=== PATIENT | female | born 1950 | race Caucasian/White ===

== ENCOUNTER → 2016-09-05 | Outpatient (CLI) | payer OTHER ==
[~2016-09-05] MED LIST: CALC500C70 PO; CHOL100010 PO; GABA-113 PO
--- NOTE | 2016-09-05 15:06 | DIAGNOSTIC IMAGING REPORT ---
MR ANGIOGRAPHY OF THE [place] NO CONTRAST CLINICAL HISTORY: I67.1 Anterior communicating artery [id number] COMPARISON STUDY: 06/18/2014 A 3-D [id number] MR angiographic sequence of the [place] was performed. Both the source and projection images were reviewed. There is no evidence of major intracranial branch occlusion. 2 tiny anterior to indicate artery aneurysms are suspected, each of which measures approximately 2 mm. There are no additional lesions suspicious for aneurysm. IMPRESSION: 2. 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 Electronically signed by: Celestino Ventura M.D. 09/05/2016 3:05 PM Dictated Date/Time: 09/05/2016 3:00 PM
== END | disposition home or self-care (01) ==
LOC: C.MRIBC 14:19
PROVIDERS: ATTEND Physician Assistant Medical
DX: I67.1 Cerebral aneurysm, nonruptured (principal)

== ENCOUNTER → 2016-09-09 | Outpatient (CLI) | payer OTHER ==
[2016-09-09 10:55] LABS: BASO % 0.5 %; BASO ABS # 0.03 K/uL (0-0.2); COMPLETE YES; EOS % 1.1 %; LYMPH % 33.3 %; MEAN CELL VOLUME 90.9 fL (80-100); MEAN CORPUSCULAR HEMOGLOBIN 30.3 pg (25-34); MEAN CORPUSCULAR HGB CONC 33.3 g/dl (32-36); MEAN PLATELET VOLUME 10.4 fL (7.4-10.4); MONO % 6.5 %; NEUT % 58.6 %; PLATELET COUNT 274 K/uL (130-400); RED BLOOD COUNT 4.62 M/uL (4.2-5.4)
[2016-09-09 11:05] LABS: ALT/SGPT 34 U/L (12-78); BLOOD UREA NITROGEN 8 mg/dl (7-18); CARBON DIOXIDE 26 mmol/L (21-32); CHLORIDE 109 mmol/L (98-107); CHOLESTEROL 231 mg/dl (0-200); CREATININE 0.71 mg/dl (0.60-1.20); GLUCOSE 93 mg/dl (70-99); POTASSIUM 3.9 mmol/L (3.5-5.1); SODIUM 143 mmol/L (136-145); TRIGLYCERIDES 155 mg/dl (0-150); VERY LOW DENSITY LIPOPROT CALC 31 mg/dl
[2016-09-09 11:08] LABS: ALB/GLOB RATIO 1.1 (0.9-2); ALKALINE PHOSPHATASE 73 U/L (45-117); AST/SGOT 26 U/L (15-37); HDL CHOLESTEROL 46 mg/dl; LDL CHOLESTEROL CALCULATED 154 mg/dl
[2016-09-09 11:11] LABS: CALCIUM 9.2 mg/dl (8.5-10.1)
== END | disposition home or self-care (01) ==
LOC: C.LABBC 08:51
PROVIDERS: ATTEND Physician Assistant Medical
DX: Z00.00 Encounter for general adult medical examination without abnormal findings (principal); G50.0 Trigeminal neuralgia; J45.909 Unspecified asthma, uncomplicated; M81.0 Age-related osteoporosis without current pathological fracture; E78.5 Hyperlipidemia, unspecified; E55.9 Vitamin D deficiency, unspecified

== ENCOUNTER → 2016-09-16 | Outpatient (CLI) | payer OTHER ==
--- NOTE | 2016-09-16 13:27 | MAMMOGRAPHY REPORT ---
BILATERAL DIGITAL SCREENING MAMMOGRAM WITH CAD: 09/16/2016 CLINICAL HISTORY: Routine screening. Patient has no complaints. TECHNIQUE: Current study was also evaluated with a Computer Aided Detection (CAD) system. Bilateral CC and MLO views were obtained. COMPARISON: Comparison is made to exams dated: 05/04/2010 mammogram - [facility], 03/2009, 03/23/2007, 02/22/2014 mammogram, and 01/25/2013 mammogram - [facility]. BREAST COMPOSITION: There are scattered areas of fibroglandular density in both breasts. FINDINGS: No suspicious masses, calcifications, or areas of architectural distortion are noted in ei ther breast. There has been no significant interval change compared to prior exams. Scattered bilate ral benign-appearing calcifications are again noted. IMPRESSION: ACR BI-RADS CATEGORY 2: BENIGN There is no mammographic evidence of malignancy. A 1 year screening mammogram is recommended. The pa tient will receive written notification of the results. Approximately 10% of breast cancers are not detected with mammography. A negative mammographic report should not delay biopsy if a clinically suggestive mass is present. Marjorie Jason M.D. /:09/16/2016 11:26:02 Fruit Peeler: Patience MEJIA(Elisha)(Megan)([place]), [facility] letter sent: Normal 1/2 BI-RADS Code: ACR BI-RADS Category 2: Benign
== END | disposition home or self-care (01) ==
LOC: C.MAMM 08:56
PROVIDERS: ATTEND Family Medicine
DX: Z12.31 Encounter for screening mammogram for malignant neoplasm of breast (principal)

== ENCOUNTER → 2016-11-01 | Outpatient (CLI) | payer OTHER | END | disposition home or self-care (01) | LOC: C.PAPS 09:04 | PROVIDERS: ATTEND Physician Assistant Medical | DX: Z12.4 Encounter for screening for malignant neoplasm of cervix (principal) ==

== ENCOUNTER 2017-08-13 19:25 | Emergency (ER) | payer OTHER ==
[~2017-08-13] VITALS: Ht 168.9 cm; Wt 81.3 kg
[2017-08-13 19:35] VITALS: TEMP 36.6; Ht 168.9 cm; Wt 81.3 kg
--- NOTE | 2017-08-13 20:02 | EMERGENCY ROOM VISIT NOTE ---
ED Visit Note First contact with patient: 19:40 I have seen and examined this patient with Bernice Schulte and generally agree with the treatment plan as discussed. Problem List Medical Problems: (1) Asthma Status: Chronic (2) Bronchitis Status: Chronic (3) Constipation Status: Resolved (4) Heart disease Status: Chronic (5) Kidney disease Status: Chronic (6) Rectal bleed Status: Resolved (7) Rectal bleed Status: Resolved Current/Historical Medications Scheduled Calcium/Vitamin D (Os-Carlso 500 Plus D), 1 TAB PO DAILY Cholecalciferol (Vitamin D), 2,000 INTER.UNIT PO DAILY Gabapentin (Neurontin), 300 MG PO AMPM Allergies Coded Allergies: No Known Allergies (Unverified , 09/18/13) Vital Signs Date Time Temp Pulse Resp B/P (MAP) Pulse Ox O2 Delivery O2 Flow Rate FiO2 08/13/17 19:35 36.6 75 18 157/82 98 Room Air Departure Information Referrals Boris Goetz M.D. (PCP) Patient Instructions My [facility]
[2017-08-13] MEDS ORDERED: ACETAMINOPHEN 500 MG TAB PO STA (20:08)
--- NOTE | 2017-08-13 21:29 | DIAGNOSTIC IMAGING REPORT ---
LEFT ELBOW 3 VIEWS HISTORY: left lateral elbow pain COMPARISON: None. FINDINGS: There is no fracture or dislocation. Soft tissues are unremarkable. No joint effusion. No radiopaque foreign bodies. IMPRESSION: No fracture or dislocation within the left elbow. Electronically signed by: Jonathon Wall M.D. 08/13/2017 9:27 PM Dictated Date/Time: 08/13/2017 9:26 PM
--- NOTE | 2017-08-13 21:40 | EMERGENCY ROOM VISIT NOTE ---
ED Visit Note First contact with patient: 19:40 CHIEF COMPLAINT: Left elbow pain HISTORY OF PRESENT ILLNESS: This 67-year-old female patient presents to the emergency department, ambulatory, complaining of pain in the left elbow which began spontaneously while driving her car. The patient states she is concerned she has a fracture, as she has severe osteoporosis and has gotten fracture spontaneously in the past. The patient denies any obvious injury, and states the pain just developed while driving. The patient rates their pain as sharp and 8/10. The patient has taken nothing for relief of the pain. The patient has not had previous fractures to this elbow. The patient does not have any numbness or tingling. The patient denies any other injuries. REVIEW OF SYSTEMS: A 6 system review of systems was completed with positives and pertinent negatives listed in the HPI. ALLERGIES: None MEDICATIONS: Gabapentin PMH: None SOCIAL HISTORY: The patient lives locally with family. She denies drug, alcohol , tobacco use. PHYSICAL EXAM: Vital Signs: Reviewed Nurse's notes, vital signs stable. GENERAL : This is a 67-year-old white female, in no acute distress, well-developed, well -nourished. SKIN: The skin was without rashes, erythema, edema, warmth, or bruising. Capillary reflex less than 3 seconds. MUSCULOSKELETAL: The patient is holding their elbow in a flexed and internally rotated position. There is tenderness over the lateral aspect of the left elbow. There is tenderness with any attempts to move the left elbow. There is no tenderness of the shoulder, wrist, or hand. The patient is able to give a thumbs up, make an OK sign, and a #3 with their fingers. Radial pulse 2+. NEURO: Patient was alert and oriented to person place and time. Normal sensation to light and sharp touch. RADIOLOGY: LEFT ELBOW 3 VIEWS HISTORY: left lateral elbow pain COMPARISON: None. FINDINGS: There is no fracture or dislocation. Soft tissues are unremarkable. No joint effusion. No radiopaque foreign bodies. IMPRESSION: No fracture or dislocation within the left elbow. Electronically signed by: Jonathon Wall M.D. 08/13/2017 9:27 PM Dictated Date/Time: 08/13/2017 9:26 PM EMERGENCY DEPARTMENT COURSE: I examined the patient. The patient was given 1 g p.o. Tylenol for her pain. She was seen and evaluated by Dr. Herbert. An x- ray of the left elbow was reviewed myself and read by radiology and shows no acute fracture. The patient was placed in an arm sling under my direction and the position was satisfactory. Neurovascular status was rechecked and intact. Discharge instructions reviewed. The patient was discharged home in stable condition. I attest that I have personally reviewed the patient's current medication list. Patient was found to have normal blood pressure on screening and does not require follow-up. Etiologies such as soft tissue injury, fracture, dislocation, neurovascular compromise, compartment syndrome, as well as others were entertained. DIAGNOSIS: Left elbow pain The chart was completed utilizing [employer] Speech voice recognition software. Grammatical errors, random word insertions, pronoun errors, and incomplete sentences are an occasional consequence of this system due to software limitations, ambient noise, and hardware issues. Any formal questions or concerns about the content, text, or information contained within the body of this dictation should be directly addressed to the provider for clarification. Problem List Medical Problems: (1) Asthma Status: Chronic (2) Bronchitis Status: Chronic (3) Constipation Status: Resolved (4) Heart disease Status: Chronic (5) Kidney disease Status: Chronic (6) Rectal bleed Status: Resolved (7) Rectal bleed Status: Resolved Current/Historical Medications Scheduled Calcium/Vitamin D (Os-Carlos 500 Plus D), 1 TAB PO DAILY Cholecalciferol (Vitamin D), 2,000 INTER.UNIT PO DAILY Gabapentin (Neurontin), 300 MG PO AMPM Allergies Coded Allergies: No Known Allergies (Unverified , 09/18/13) Vital Signs Date Time Temp Pulse Resp B/P (MAP) Pulse Ox O2 Delivery O2 Flow Rate FiO2 08/13/17 22:11 80 18 145/75 98 08/13/17 19:35 36.6 75 18 157/82 98 Room Air Medications Administered Medications (Trade) Dose Ordered Sig/Juhi Route Start Time Stop Time Status Last Admin Dose Admin Acetaminophen (Tylenol Tab) 1,000 mg NOW STAT PO 08/13/17 20:08 08/13/17 20:09 DC 08/13/17 20:19 1,000 MG Departure Information Impression Primary Impression: Left elbow pain Dispostion Home / Self-Care Condition GOOD Referrals Boris Goetz M.D. (PCP) [facility] Patient Instructions ED Sprain Elbow, My [facility] Additional Instructions You were seen in the ED today for elbow pain. As discussed, there is no fracture noted on xray. Ibuprofen(Motrin, Advil) may be used for fever or pain. Use 600mg every six hours as needed. Take with food. Avoid using more than 2400mg in a 24 hour period. Do not use 2400mg per day for more than three consecutive days without physician direction. Prolonged inappropriate use can lead to stomach upset or ulcers. (AND/OR) Acetaminophen(Tylenol) may be used for fever or pain. Use 1000mg every six hours as needed. Avoid using more than 3000mg in a 24 hour period. Ice compresses for 20 minutes at a time four times daily for 2-3 days. Use the sling as instructed. Remove your arm from the sling 4-6 times a day and move all the joints around to keep them loose. Rest and elevate your injury. Return to the ER immediately for any numbness, tingling, severe pain, extreme swelling in the extremity or as needed. Call [facility], [phone], if no improvement in 2-3 days to arrange follow up for your injury. Follow-up with your primary care physician in 2 to 3 days for a recheck of your current condition.
[2017-08-13 22:11] VITALS: BP 145/75; PULSE 80; O2SAT 98
== END 2017-08-13 22:13 | disposition home or self-care (01) ==
LOC: C.EDB 19:25 → C.EDD 22:13
DX: M25.522 Pain in left elbow (principal); M81.0 Age-related osteoporosis without current pathological fracture; J45.909 Unspecified asthma, uncomplicated

== ENCOUNTER → 2017-08-24 | Outpatient (CLI) | payer OTHER | END | disposition home or self-care (01) | LOC: C.MAMM 08:17 | PROVIDERS: ATTEND Internal Medicine | DX: M81.0 Age-related osteoporosis without current pathological fracture (principal); M84.40XA Pathological fracture, unspecified site, initial encounter for fracture; M85.851 Other specified disorders of bone density and structure, right thigh; M85.852 Other specified disorders of bone density and structure, left thigh ==

== ENCOUNTER 2021-04-21 20:54 | Inpatient (IN) ==
--- NOTE | 2021-04-21 21:38 | Emergency Department Note ---
Impression & Plan 2019 novel coronavirus-infected pneumonia (NCIP), Hypoxia ED Provider Note NAME: FELIPA VENTURA AGE: 70 SEX: F : 1950 ARRIVES VIA: Walk-In INFORMANT: Patient ED PROVIDER(S): Yonatan Cole DO CHIEF COMPLAINT: Cough and congestion HPI: Patient is a 70-year-old female who presents to the ER for symptoms that started on the april. She admits to cough and congestion. She denies any recorded fevers. She has felt diffusely achy. She does admit to mild shortness of breath. She has pain with coughing. No belly pain, nausea, vomiting, or diarrhea. No dysuria, urgency, or frequency. She has not been tested for COVID. She tried to get into see her PCP but was referred in to the ER. Does not smoke. ROS: See above HPI for pertinent positives & negatives. A total of 10 systems reviewed and were otherwise negative. PAST MEDICAL HISTORY:See Below PAST SURGICAL HISTORY:See Below FAMILY HISTORY:See Below SOCIAL HISTORY:See Below HOME MEDICATIONS:See Below ALLERGIES:See Below VITALS:See Below PHYSICAL EXAMINATION: GENERAL: Sitting up in bed, alert, disheveled, slightly ill-appearing with a persistent cough EYE EXAM: normal conjunctiva. PERRL and EOM's grossly intact. OROPHARYNX: no exudate, no erythema, lips, buccal mucosa, and tongue normal and mucous membranes are moist NECK: supple, no nuchal rigidity, no adenopathy, non-tender LUNGS: Clear to auscultation. Normal chest wall mechanics HEART: no murmurs, S1 normal and S2 normal ABDOMEN: abdomen soft, non-tender, normo-active bowel sounds, no masses, no rebound or guarding. UPPER EXTREMITIES: upper extremities are grossly normal. LOWER EXTREMITIES: No pitting edema. NEURO EXAM: Normal sensorium, cranial nerves II-XII grossly intact, normal speech, no gross weakness of arms, no gross weakness of legs. MEDICAL DECISION MAKING: Patient is a 70-year-old female who presents ER for upper respiratory symptoms. IV was established blood work is obtained. She is found to be hypoxic at 88 to 89% on room air. She is placed on 2 L nasal cannula. Labs showed no significant leukocytosis or anemia. BMP low with LFTs bilirubin was remarkable for a slightly elevated glucose of 103. Troponin was negative. Lipase unremarkable. COVID-positive. EKG shows new T wave inversions. Chest x-ray with infiltrates bilaterally worse in the left lower. Patient was given Decadron updated at bedside discussed with hospitalist admitted for further wo rk-up. Triage Nursing notes reviewed. Limited review of prior medical records performed Vital Signs: reviewed and remarkable for HTN Differential diagnosis: Differential diagnoses includes but is not limited to pneumonia, bronchitis, COPD/Asthma exacerbation, pneumothorax, pulmonary embolism, congestive heart failure, acute coronary syndrome ER treatment provided: See below Diagnostics interpreted by me: ECG: Sinus rhythm rate of 79 T wave inversion in the inferior leads T wave inversions V3 and V4 QTC 428 Right bundle branch block present T wave inversion is new in leads III and aVF Cardiac Monitoring: An order was placed for continuous cardiac monitoring. The monitor shows a rate of 92 with sinus rhythm. Laboratory studies: As stated above and show below. Imaging studies: Chest x-ray shows bilateral infiltrates Consultation(s): Discussed with Izaiah Saldaña for further evaluation Procedures: none Critical Care: None Past Med/Surg History Medical History Anterior communicating artery aneurysm Asthma Bronchitis Bronchitis Dyslipidemia Kidney disease Osteoporosis Radius and ulna distal fracture Rectal bleed Trigeminal neuralgia Vitamin D deficiency Surgical History H/O right wrist surgery History of tonsillectomy and adenoidectomy Family History Grandmother Myocardial infarction Grandfather Myocardial infarction Mother Myocardial infarction Brother Prostate cancer Denies family history of Colon cancer Ovarian cancer Breast cancer Social History Smoking Status: Never smoker Hx Alcohol Use: No Hx Substance Use: No Preferred Language: Yoruba Visual Impairment: No Limitations Hearing Ability: Normal marital status: Current Living Situation: Family current occupational status: retired Feels Safe at Home: Yes Childhood Exposure to Second-Hand Smoke: No Physical Activity Frequency: Daily Seatbelt Use: always Sunscreen Use: No Allergies Allergies Allergy/AdvReac Type Severity Reaction Status Date / Time No Known Drug Allergies Allergy Unknown Verified 04/21/21 21:44 Home Meds Home Medications Medication Instructions Recorded Confirmed calcium carbonate 600 mg calcium 600 mg PO DAILY #90 tab 11/07/18 04/21/21 (1,500 mg) tablet cholecalciferol (vitamin D3) 50 2,000 units PO DAILY cap 11/07/18 04/21/21 mcg (2,000 unit) capsule zinc 50 mg tablet 50 mg PO DAILY 11/25/19 04/21/21 ascorbic acid (vitamin C) 500 mg 500 mg PO BID 02/22/21 04/21/21 tablet oxcarbazepine 300 mg tablet 300 mg PO BID tab 03/03/21 04/21/21 Results & Data (ED) Vital Signs Vital Signs - 24 hr 04/21/21 20:58 04/21/21 22:00 04/21/21 22:46 Temperature 37.4 C Temperature Source Temporal Artery Scan Pulse Rate 95 H 77 Pulse Rate [Finger] Respiratory Rate 18 22 Respiratory Effort / Characteristics Non-Labored Spontaneous Respiratory Depth Normal Respiratory Pattern Regular Blood Pressure 155/86 H 145/89 H Blood Pressure [Right Arm] Blood Pressure Mean 109 107 Blood Pressure Mean [Right Arm] Blood Pressure Position Sitting Pulse Oximetry 91 89 L 88 L Oxygen Delivery Method Room Air Room Air Room Air Oxygen Flow Rate 0 Sepsis Recent Fever Within 48 Hours No Sepsis New/Unexplained Change in Mental Status No Sepsis Action Taken by Nursing No Action Required Oxygen Flow Rate - Titration 2 Pulse Oximetry Post Tiitration 94 04/21/21 22:54 04/21/21 22:55 04/21/21 23:00 Temperature Temperature Source Pulse Rate 78 82 Pulse Rate [Finger] 79 Respiratory Rate 22 20 22 Respiratory Effort / Characteristics Respiratory Depth Respiratory Pattern Blood Pressure 144/87 H 156/80 H Blood Pressure [Right Arm] 144/87 H Blood Pressure Mean 106 105 Blood Pressure Mean [Right Arm] 106 Blood Pressure Position Pulse Oximetry 94 95 95 Oxygen Delivery Method Nasal Cannula Oxygen Flow Rate 2 Sepsis Recent Fever Within 48 Hours Sepsis New/Unexplained Change in Mental Status Sepsis Action Taken by Nursing Oxygen Flow Rate - Titration Pulse Oximetry Post Tiitration Laboratory Data Result diagrams: 04/21/21 21:50 04/21/21 21:50 Lab Results 04/21/21 04/21/21 04/21/21 Range/Units 21:23 21:50 21:50 WBC 5.82 (4.8-10.8) K/uL RBC 4.50 (4.2-5.4) M/uL Hgb 13.4 (12.0-16.0) g/dL Hct 40.3 (37-47) % MCV 89.6 (80-100) fL MCH 29.8 (25-34) pg MCHC 33.3 (32-36) g/dL RDW Std Deviation 41.3 (36.4-46.3) fL RDW Coeff of Marilou 12.6 (11.5-14.5) % Plt Count 227 (130-400) K/uL MPV 10.0 (7.4-10.4) fL Neutrophils % (Manual) 62.5 % Lymphocytes % (Manual) 18.3 % Monocytes % (Manual) 0.9 % Neutrophils # (Manual) 3.64 (1.4-6.5) K/uL Total Absolute Neuts 3.64 (1.4-6.5) K/uL Lymphocytes # (Manual) 1.07 L (1.2-3.4) K/uL Total Abs Lymphocytes 2.13 (1.2-3.4) K/uL Monocytes # (Manual) 0.05 L (0.11-0.59) K/uL Large Granular Lymphs 18.3 % # Lrg Granular Lymphs 1.07 K/uL RBC Morphology Unremarkable Sodium 136 (136-145) mmol/L Potassium 3.8 (3.5-5.1) mmol/L Chloride 103 (98-107) mmol/L Carbon Dioxide 26 (21-32) mmol/L Anion Gap 7 (3-11) BUN 13 (6-23) mg/dl Creatinine 0.66 (0.6-1.2) mg/dl Est Cr Clr Drug Dosing 73.2 ml/min Est GFR ( Amer) 103.0 ml/min Est GFR (Non-Af Amer) 88.9 ml/min BUN/Creatinine Ratio 19.7 (10-20) Glucose 103 H (70-99(Fasting)) mg/dl Calcium 8.6 (8.5-10.1) mg/dl Total Bilirubin 0.5 (0.2-1.0) mg/dl AST 38 (13-39) U/L ALT 24 (7-52) U/L Alkaline Phosphatase 57 (34-104) U/L Troponin I < 0.03 (0-0.04) ng/ml Total Protein 6.5 (6.0-8.3) gm/dl Albumin 3.5 (3.4-5.0) gm/dl Globulin 3.0 (2.5-4.0) gm/dl Albumin/Globulin Ratio 1.2 (0.9-2) Lipase 73 (11-82) U/L SARS-CoV-2 (PCR) POSITIVE A* (Negative) Influenza Type A (PCR) Negative (Neg) Influenza Type B (PCR) Negative (Neg) RSV (RT-PCR) Negative (Neg) Imaging Data Radiologist's Impression: Chest X-Ray 04/21/21 21:13 XR chest 1V portable CLINICAL HISTORY: Chest Pain. Cough for 10 days. Nonsmoker. COMPARISON STUDY: 02/22/2021 TECHNIQUE: 1 view of the chest FINDINGS: Single frontal view of the chest demonstrates the cardiomediastinal silhouette to be within normal limits. Patchy interstitial and alveolar opacities are present bilaterally. The findings are most characteristic of a viral type pneumonitis. Covid 19 pneumonia should be excluded. There is no evidence for pleural effusion. There is no evidence for vascular congestion. There is no acute osseous pathology. IMPRESSION: Patchy interstitial and alveolar opacities bilaterally characteristic of a viral type pneumonitis and probable early Covid 19 pneumonia. ACT 112: Negative or not required by law. Electronically signed by: Min Wade M.D. 04/21/2021 9:42 PM Discharge Plan Visit Data Chief Complaint: Cough Stated Complaint: COUGHING, SOB, CHEST PAIN ED Provider: Yonatan Cole Discharge Problem: 2019 novel coronavirus-infected pneumonia (NCIP), Hypoxia Forms Stand Alone Forms: My [facility] Prescriptions Prescriptions: No Action oxcarbazepine 300 mg tablet 300 mg PO BID RF: 0 zinc 50 mg tablet 50 mg PO DAILY RF: 0 calcium carbonate 600 mg calcium (1,500 mg) tablet 600 mg PO DAILY Qty: 90 RF: 0 cholecalciferol (vitamin D3) 2,000 unit capsule 2,000 units PO DAILY RF: 0 ascorbic acid (vitamin C) 500 mg Tablet 500 mg PO BID RF: 0 Referrals Referrals: Apolinar Juárez MD [Primary Care Provider] -
--- NOTE | 2021-04-21 21:43 | XRay Report ---
XR chest 1V portable CLINICAL HISTORY: Chest Pain. Cough for 10 days. Nonsmoker. COMPARISON STUDY: 02/22/2021 TECHNIQUE: 1 view of the chest FINDINGS: Single frontal view of the chest demonstrates the cardiomediastinal silhouette to be within normal li mits. Patchy interstitial and alveolar opacities are present bilaterally. The findings are most kathia cteristic of a viral type pneumonitis. Covid 19 pneumonia should be excluded. There is no evidence fo r pleural effusion. There is no evidence for vascular congestion. There is no acute osseous pathology . IMPRESSION: Patchy interstitial and alveolar opacities bilaterally characteristic of a viral type pne umonitis and probable early Covid 19 pneumonia. ACT 112: Negative or not required by law. Electronically signed by: Min Wade M.D. 04/21/2021 9:42 PM
[2021-04-21 22:01] LABS: Hematocrit (blood only) 40.3 % (37-47); Hemoglobin 13.4 g/dL (12.0-16.0); Mean Corpuscular Hemoglobin 29.8 pg (25-34); Mean Corpuscular Hgb Conc 33.3 g/dL (32-36); Mean Corpuscular Volume 89.6 fL (80-100); Platelet Count 227 K/uL (130-400); RDW Coefficient of Variation 12.6 % (11.5-14.5); RDW Standard Deviation 41.3 fL (36.4-46.3); White Blood Count 5.82 K/uL (4.8-10.8)
[2021-04-21 22:10] LABS: Influenza A virus by PCR Negative (Neg); Influenza B virus by PCR Negative (Neg); RSV by PCR Negative (Neg); SARS CoV2 RNA(COVID-19) InHosp POSITIVE (Negative)
[2021-04-21 22:25] LABS: Troponin I < 0.03 ng/ml (0-0.04)
[2021-04-21 22:26] LABS: Alanine Aminotransferase 24 U/L (7-52); Albumin Globulin Ratio 1.2 (0.9-2); Albumin Level 3.5 gm/dl (3.4-5.0); Alkaline Phosphatase 57 U/L (34-104); Anion Gap 7 (3-11); Aspartate Aminotransferase 38 U/L (13-39); BUN Creatinine Ratio 19.7 (10-20); Bilirubin,Total 0.5 mg/dl (0.2-1.0); Blood Urea Nitrogen 13 mg/dl (6-23); Calcium 8.6 mg/dl (8.5-10.1); Carbon Dioxide 26 mmol/L (21-32); Chloride 103 mmol/L (98-107); Creatinine Clr Calc Pharmacy 73.2 ml/min; Est GFR (Non-African American) 88.9 ml/min; Glucose 103 mg/dl (70-99(Fasting)); Lipase 73 U/L (11-82); Potassium 3.8 mmol/L (3.5-5.1); Sodium 136 mmol/L (136-145); Total Protein 6.5 gm/dl (6.0-8.3)
[2021-04-21] MEDS ORDERED: dexAMETHasone 6 MG in SYRINGE 0 ML IV ONE (22:37)
[2021-04-21 22:43] LABS: ALC (manual) 2.13 K/uL (1.2-3.4); ANC (manual) 3.64 K/uL (1.4-6.5); Large Granular Lymph # (manua 1.07 K/uL; Large Granular Lymph % (manual) 18.3 %; Lymphocytes # (manual) 1.07 K/uL (1.2-3.4); Lymphocytes % (manual) 18.3 %; Monocytes # (manual) 0.05 K/uL (0.11-0.59); Monocytes % (manual) 0.9 %; Neutrophils # (manual) 3.64 K/uL (1.4-6.5); Neutrophils % (manual) 62.5 %; RBC Morphology Unremarkable
[2021-04-21] MEDS ORDERED: HYDROcodone/HOMATROPINE SYRUP 5MG/1.5MG 5ML UDP PO STA (23:08)
[2021-04-21] MEDS ORDERED: dexAMETHasone 4 MG in SYRINGE 0 ML IV ONE (23:09)
[2021-04-21] MEDS ORDERED: DEXAMETHASONE SOD INJ 4 MG/ML VIAL IV ONE (23:15)
[2021-04-21] MEDS ORDERED: AZITHROMYCIN 500 MG in DEXTROSE 5% 250 ML IV ONE (23:30)
--- NOTE | 2021-04-21 23:30 | History & Physical Report ---
Date of Service April 21, 2021 Assessment & Plan (1) 2019 novel coronavirus-infected pneumonia (NCIP): Plan: COVID-19 pneumonia/secondary bacterial pneumonia of left lower lobe/hypoxia- Dexamethasone 6 mg IV every morning Ceftriaxone 1 g IV daily Azithromycin 500 mg IV daily Guaifenesin extended release 1200 mg p.o. twice daily Vitamin D 5000 international units p.o. every morning Combivent Respimat 1 puff 4 times daily DuoNebs every 2 hours as needed Nasal cannula oxygen, titrate to keep pulse ox 94-95% Hycodan 5 mils p.o. every 4 hours as needed Zinc 50 mg p.o. daily, continue from outpatient (2) Secondary bacterial pneumonia: Plan: Left lower lobe consolidation on chest x-ray (3) Hypoxia: Plan: See above (4) Trigeminal neuralgia: Plan: Continue oxcarbazepine History of Present Illness Chief Complaint: The patient presents to the emergency department with her daughter, with complaint of 11 days of worsening symptoms of painful cough, congestion, shortness of breath, dyspnea on exertion and generalized achiness and fatigue. Primary Care Provider: Apolinar Juárez MD The patient is a 70-year-old female with a past medical history including metacarpal bone fracture, chronic venous insufficiency, mitral valve prolapse syndrome, antique indicating artery aneurysm, dyslipidemia, osteoporosis, t rigeminal neuralgia, vitamin D deficiency, constipation, heart disease and asthma. Patient presents with symptoms as noted above. She reports that her worst symptom is of painful cough. Allergies Allergy/AdvReac Type Severity Reaction Status Date / Time No Known Drug Allergies Allergy Unknown Verified 04/21/21 21:44 Home Medications Medication Instructions Recorded Confirmed Type calcium carbonate 600 mg calcium 600 mg PO DAILY #90 tab 11/07/18 04/21/21 History (1,500 mg) tablet cholecalciferol (vitamin D3) 50 2,000 units PO DAILY cap 11/07/18 04/21/21 History mcg (2,000 unit) capsule zinc 50 mg tablet 50 mg PO DAILY 11/25/19 04/21/21 History ascorbic acid (vitamin C) 500 mg 500 mg PO BID 02/22/21 04/21/21 History tablet oxcarbazepine 300 mg tablet 300 mg PO BID tab 03/03/21 04/21/21 History Past Med/Surg History Medical History Anterior communicating artery aneurysm Asthma Bronchitis Bronchitis Dyslipidemia Kidney disease Osteoporosis Radius and ulna distal fracture Rectal bleed Trigeminal neuralgia Vitamin D deficiency Surgical History H/O right wrist surgery History of tonsillectomy and adenoidectomy Family History Grandmother Myocardial infarction Grandfather Myocardial infarction Mother Myocardial infarction Brother Prostate cancer Denies family history of Colon cancer Ovarian cancer Breast cancer Social History Smoking Status: Never smoker Hx Alcohol Use: No Hx Substance Use: No Preferred Language: Italian Communication Ability: Effective Visual Impairment: No Limitations Hearing Ability: Normal Plastics Fabricator Or Welder Required: No Beliefs That Will Affect Care: None marital status: Current Living Situation: Alone current occupational status: retired Other Information That Helps Us Care for You: No Feels Safe at Home: Yes Safety Concerns: Feels Safe At This Time Childhood Exposure to Second-Hand Smoke: No Physical Activity Frequency: Daily Seatbelt Use: always Sunscreen Use: No Assistive Devices: Oxygen - Continuous Review of Systems Review of Systems: The patient denies palpitations, lower extremity swelling, sore throat, fevers, chills, sweats vomiting, diarrhea , constipation, abdominal pain, pelvic pain, blood in urine or stool, dysuria, urinary frequency or urgency, lightheadedness, dizziness, headache, memory loss, loss of consciousness, rash, abnormal bruising or bleeding, imbalance, focal or generalized weakness, numbness or tingling in arms or legs, neck pain, or night sweats. The review of systems is otherwise negative other than for that already noted above, and at least 10 systems have been reviewed. Physical Exam Physical Exam: The patient is awake, alert and oriented 3, well developed and well nourished, normocephalic and atraumatic, lying in bed and in no acute distress. HEENT--PERRL, EOMI, mucous membranes and oropharynx normal. Neck--supple. No JVD. No bruits. Thyroid normal, trachea midline, no adenopathy. Heart--normal S1 and S2. No murmurs, rubs or gallops. Lungs--clear bilaterally, no respiratory distress, no accessory muscle use. Abdomen--normal bowel sounds and soft. Nontender. Nondistended, no hernias or masses, no organomegaly. Extremities--no cyanosis or clubbing. No edema. Dermatologic--normal skin turgor, normal color, no abnormal lymph nodes, no minna h. Neurologic--cranial nerves II through XII grossly intact. Rheumatologic--normal range of motion. Psychiatric--normal affect. Results & Data Results & Data ([facility]) Vital Signs (Past 12 Hours) Vital Signs Temp Pulse Pulse Resp BP BP Pulse Ox 04/21/21 23:00 82 22 156/80 H 95 04/21/21 22:55 78 20 144/87 H 95 04/21/21 22:54 79 22 144/87 H 94 04/21/21 22:46 88 L 04/21/21 22:00 77 22 145/89 H 89 L 04/21/21 20:58 37.4 C 95 H 18 155/86 H 91 Laboratory Results Laboratory Results WBC 5.82 K/uL (4.8-10.8) 04/21/21 21:50 RBC 4.50 M/uL (4.2-5.4) 04/21/21 21:50 Hgb 13.4 g/dL (12.0-16.0) 04/21/21 21:50 Hct 40.3 % (37-47) 04/21/21 21:50 MCV 89.6 fL (80-100) 04/21/21 21:50 MCH 29.8 pg (25-34) 04/21/21 21:50 MCHC 33.3 g/dL (32-36) 04/21/21 21:50 RDW Std Deviation 41.3 fL (36.4-46.3) 04/21/21 21:50 RDW Coeff of Marilou 12.6 % (11.5-14.5) 04/21/21 21:50 Plt Count 227 K/uL (130-400) 04/21/21 21:50 MPV 10.0 fL (7.4-10.4) 04/21/21 21:50 Neutrophils % (Manual) 62.5 % 04/21/21 21:50 Lymphocytes % (Manual) 18.3 % 04/21/21 21:50 Monocytes % (Manual) 0.9 % 04/21/21 21:50 Neutrophils # (Manual) 3.64 K/uL (1.4-6.5) 04/21/21 21:50 Total Absolute Neuts 3.64 K/uL (1.4-6.5) 04/21/21 21:50 Lymphocytes # (Manual) 1.07 K/uL (1.2-3.4) L 04/21/21 21:50 Total Abs Lymphocytes 2.13 K/uL (1.2-3.4) 04/21/21 21:50 Monocytes # (Manual) 0.05 K/uL (0.11-0.59) L 04/21/21 21:50 Large Granular Lymphs 18.3 % 04/21/21 21:50 # Lrg Granular Lymphs 1.07 K/uL 04/21/21 21:50 RBC Morphology Unremarkable 04/21/21 21:50 Sodium 136 mmol/L (136-145) 04/21/21 21:50 Potassium 3.8 mmol/L (3.5-5.1) 04/21/21 21:50 Chloride 103 mmol/L (98-107) 04/21/21 21:50 Carbon Dioxide 26 mmol/L (21-32) 04/21/21 21:50 Anion Gap 7 (3-11) 04/21/21 21:50 BUN 13 mg/dl (6-23) 04/21/21 21:50 Creatinine 0.66 mg/dl (0.6-1.2) 04/21/21 21:50 Est Cr Clr Drug Dosing 73.2 ml/min 04/21/21 21:50 Est GFR ( Amer) 103.0 ml/min 04/21/21 21:50 Est GFR (Non-Af Amer) 88.9 ml/min 04/21/21 21:50 BUN/Creatinine Ratio 19.7 (10-20) 04/21/21 21:50 Glucose 103 mg/dl (70-99(Fasting)) H 04/21/21 21:50 Calcium 8.6 mg/dl (8.5-10.1) 04/21/21 21:50 Total Bilirubin 0.5 mg/dl (0.2-1.0) 04/21/21 21:50 AST 38 U/L (13-39) 04/21/21 21:50 ALT 24 U/L (7-52) 04/21/21 21:50 Alkaline Phosphatase 57 U/L (34-104) 04/21/21 21:50 Troponin I < 0.03 ng/ml (0-0.04) 04/21/21 21:50 Total Protein 6.5 gm/dl (6.0-8.3) 04/21/21 21:50 Albumin 3.5 gm/dl (3.4-5.0) 04/21/21 21:50 Globulin 3.0 gm/dl (2.5-4.0) 04/21/21 21:50 Albumin/Globulin Ratio 1.2 (0.9-2) 04/21/21 21:50 Lipase 73 U/L (11-82) 04/21/21 21:50 SARS-CoV-2 (PCR) POSITIVE (Negative) A* 04/21/21 21:23 Influenza Type A (PCR) Negative (Neg) 04/21/21 21:23 Influenza Type B (PCR) Negative (Neg) 04/21/21 21:23 RSV (RT-PCR) Negative (Neg) 04/21/21 21:23 Impressions Chest X-Ray 04/21/21 21:13 XR chest 1V portable CLINICAL HISTORY: Chest Pain. Cough for 10 days. Nonsmoker. COMPARISON STUDY: 02/22/2021 TECHNIQUE: 1 view of the chest FINDINGS: Single frontal view of the chest demonstrates the cardiomediastinal silhouette to be within normal limits. Patchy interstitial and alveolar opacities are present bilaterally. The findings are most characteristic of a viral type pneumonitis. Covid 19 pneumonia should be excluded. There is no evidence for pleural effusion. There is no evidence for vascular congestion. There is no acute osseous pathology. IMPRESSION: Patchy interstitial and alveolar opacities bilaterally characteristic of a viral type pneumonitis and probable early Covid 19 pneumonia. ACT 112: Negative or not required by law. Electronically signed by: Min Wade M.D. 04/21/2021 9:42 PM Code Status & VTE Plan Code Status Full code VTE Prophylaxis Plan VTE Prophylaxis will be ordered: Yes PG Care Time/CCT Total # of Minutes Spent Total Time Spent with Patient: Total time spent is greater than 50% in coordination of care (as documented) at patient's floor/unit and/or counseling patient: Coding Level of Care Code 81616 Initial Inpt Care Lvl 3 Diagnoses Secondary bacterial pneumonia J15.9 2019 novel coronavirus-infected pneumonia (NCIP) U07.1; J12.82 Hypoxia R09.02 Trigeminal neuralgia G50.0
[2021-04-21] MEDS ORDERED: cefTRIAXone SODIUM 1,000 MG/50 ML BAG IV STA (23:31)
[2021-04-22] MEDS ORDERED: ONDANSETRON INJ 2 MG/ML 2 ML VIAL IV PRN (00:53)
[2021-04-22] MEDS ORDERED: ALBUT/IPRATROP 3MG/0.5MG NEB 3 ML VIAL NEB PRN (00:53)
[2021-04-22] MEDS: ACETAMINOPHEN 325 MG TAB PO PRN ×2 (01:36→12:22)
[2021-04-22] MEDS: BENZONATATE 100 MG CAPSULE PO PRN ×2 (03:01→12:23)
[2021-04-22] MEDS: OXcarbazepine 150 MG TABLET PO SCH ×3 (03:01→08:35)
[2021-04-22] MEDS ORDERED: ALBUTEROL HFA 8 GM INHALER INH SCH (07:00)
[2021-04-22] MEDS ORDERED: IPRATROPIUM BROMIDE HFA INHALER INH SCH (07:00)
[2021-04-22] MEDS: ASCORBIC ACID 500 MG TAB PO SCH ×2 (08:32→21:14)
[2021-04-22] MEDS: CALCIUM CARBONATE 1250MG TAB PO SCH (08:32)
[2021-04-22] MEDS: ZINC SULFATE 220 MG CAPSULE PO SCH (08:33)
[2021-04-22] MEDS: guaiFENesin 600 MG TABCR PO SCH ×2 (08:33→21:14)
[2021-04-22] MEDS: CHOLECALCIFEROL 5,000 UNITS 125 MCG TAB PO SCH (08:33)
[2021-04-22] MEDS: ENOXAPARIN INJ 40 MG/0.4 ML SYR SQ SCH ×2 (08:33→08:39)
[2021-04-22] MEDS: dexAMETHasone 6 MG in SYRINGE 0 ML IV SCH ×2 (08:33→21:13)
[2021-04-22] MEDS ORDERED: ALBUTEROL HFA 8 GM INHALER INH PRN (08:52)
[2021-04-22] MEDS ORDERED: IPRATROPIUM BROMIDE HFA INHALER INH PRN (08:53)
[2021-04-22] MEDS ORDERED: IPRATROPIUM BROMIDE/ALBUTEROL respimat INH INH SCH (09:00)
--- NOTE | 2021-04-22 12:11 | Hospitalist Progress Note ---
Date of Service April 22, 2021 Assessment & Plan (1) 2019 novel coronavirus-infected pneumonia (NCIP): Plan: First symptoms: 04/11/2021 First tested: 04/21/2021 Vaccinated: No Admission date: 04/21/2021 Admission O2 requirement: 2L NC Admission CRP: Unk Dexamethasone course started: 04/21/2021; End date: 04/30/2021 Remdesivir contraindication: >7 days of symptoms Tocilizumab/baricitinib contraindication: Only 2L NC O2 requirement Antibiotics: Ceftriaxone/azithromycin - Started on 04/21/2021 DVT ppx: Lovenox 40 mg SQ daily Breathing treatments: DuoNebs, guaifenesin Presently requiring 2L NC. (2) Secondary bacterial pneumonia: Plan: Initial CXR indicated LLL consolidation. - Abx as above (3) Hypoxia: Plan: Acute respiratory failure due to Covid-19. (4) Trigeminal neuralgia: Plan: None presently. - Continue oxcarbazepine Admission and Anticipated Discharge Date Admission Date: April 21, 2021 Subjective Doing better today. Very tired still. Reports no fevers/chills, chest pain, shortness of breath, abdominal pain, nausea, or vomiting. Physical Exam Constitutional: WD/WN, vitals as above Eyes: EOM intact bilaterally; no conjunctival abnormality ENMT: external ear and nose normal, oropharynx normal Neck: trachea midline, no thyromegaly normal visual inspection Respiratory: normal respiratory effort, lungs clear to auscultation no respiratory distress Cardiovascular: RRR, no murmur, no edema Gastrointestinal (Abdomen): Inspection/Auscultation: abdomen normal to inspection; abdomen not distended Musculoskeletal: no cyanosis or clubbing, extremities motor strength 5/5 Skin: no rashes, warm and dry Neurologic: moves all extremities and awake Psychiatric: Orientation: alert, oriented to person and cooperative Results & Data Results & Data ([facility]) Vital Signs (Past 12 Hours) Vital Signs Temp Pulse Pulse Resp BP BP Pulse Ox 04/22/21 10:55 36.5 C 55 L 19 104/63 93 04/22/21 08:13 36.5 C 58 L 18 112/62 95 04/22/21 05:33 36.6 C 04/22/21 02:12 37 C 04/22/21 01:03 37.7 C H 75 24 121/70 95 04/22/21 00:53 37.7 C H 75 24 121/70 95 04/22/21 00:46 71 Pulse Ox 04/22/21 10:55 04/22/21 08:13 04/22/21 05:33 04/22/21 02:12 04/22/21 01:03 04/22/21 00:53 95 04/22/21 00:46 PG Care Time/CCT Total # of Minutes Spent Total Time Spent with Patient: Total time spent is greater than 50% in coordination of care (as documented) at patient's floor/unit and/or counseling patient: Coding Level of Care Code 50723 Subseq Hosp Care Lvl 2 Diagnoses 2019 novel coronavirus-infected pneumonia (NCIP) U07.1; J12.82 Secondary bacterial pneumonia J15.9 Hypoxia R09.02 Trigeminal neuralgia G50.0
[2021-04-22] MEDS ORDERED: COUGH DROP (SUGAR FREE) LOZ 24 LOZ/1 BOX BUCCAL ONE (17:16)
[2021-04-22] MEDS: HYDROcodone/HOMATROPINE SYRUP 5MG/1.5MG 5ML UDP PO PRN (21:21)
[2021-04-22] MEDS: cefTRIAXone SODIUM 1,000 MG in DEXTROSE 5% 50 ML IV SCH (23:10)
[2021-04-22] MEDS: AZITHROMYCIN 500 MG in DEXTROSE 5% 250 ML IV SCH (23:37)
[2021-04-23] MEDS: OXcarbazepine 150 MG TABLET PO SCH (05:59)
--- NOTE | 2021-04-23 06:02 | Electrocardiogram Report ---
Test Reason : Blood Pressure : / mmHG Vent. Rate : 079 BPM Atrial Rate : 079 BPM P-R Int : 160 ms QRS Dur : 126 ms QT Int : 374 ms P-R-T Axes : 042 048 -12 degrees QTc Int : 428 ms Normal sinus rhythm Right bundle branch block T wave abnormality, consider inferior ischemia Abnormal ECG When compared with ECG of 22-FEB-2021 15:39, T wave inversion now evident in Inferior leads Confirmed by Israel Braswell ([id number]) on 04/23/2021 6:02:22 AM Referred By: REFERRED SELF Confirmed By:Israel Braswell
[2021-04-23] MEDS: ASCORBIC ACID 500 MG TAB PO SCH ×2 (08:15→21:10)
[2021-04-23] MEDS: CALCIUM CARBONATE 1250MG TAB PO SCH (08:15)
[2021-04-23] MEDS: guaiFENesin 600 MG TABCR PO SCH ×2 (08:15→21:04)
[2021-04-23] MEDS: CHOLECALCIFEROL 5,000 UNITS 125 MCG TAB PO SCH (08:15)
[2021-04-23] MEDS: ZINC SULFATE 220 MG CAPSULE PO SCH (08:15)
[2021-04-23] MEDS: ENOXAPARIN INJ 40 MG/0.4 ML SYR SQ SCH (08:16)
[2021-04-23] MEDS: dexAMETHasone 6 MG in SYRINGE 0 ML IV SCH ×2 (08:20→21:09)
--- NOTE | 2021-04-23 16:30 | Hospitalist Progress Note ---
Date of Service April 23, 2021 Assessment & Plan (1) 2019 novel coronavirus-infected pneumonia (NCIP): Plan: First symptoms: 04/11/2021 First tested: 04/21/2021 Vaccinated: No Admission date: 04/21/2021 Admission O2 requirement: 2L NC Admission CRP: Unk Dexamethasone course started: 04/21/2021; End date: 04/30/2021 Remdesivir contraindication: >7 days of symptoms Tocilizumab/baricitinib contraindication: Only 2L NC O2 requirement Antibiotics: Ceftriaxone/azithromycin - Started on 04/21/2021 DVT ppx: Lovenox 40 mg SQ daily Breathing treatments: DuoNebs, guaifenesin Presently requiring 2L - 3L NC. (2) Secondary bacterial pneumonia: Plan: Initial CXR indicated LLL consolidation. Does have slightly more crackles in LLL than other areas of lungs. - Abx as above (3) Hypoxia: Plan: Acute respiratory failure due to Covid-19. (4) Trigeminal neuralgia: Plan: None presently. - Continue oxcarbazepine Plan: Presently refusing labs. Admission and Anticipated Discharge Date Admission Date: April 21, 2021 Subjective No change today. Still with a cough and low energy. Reports no fevers/chills, chest pain, shortness of breath, abdominal pain, nausea, or vomiting. Physical Exam Constitutional: WD/WN, vitals as above Eyes: EOM intact bilaterally; no conjunctival abnormality ENMT: external ear and nose normal, oropharynx normal Neck: trachea midline, no thyromegaly normal visual inspection Respiratory: no respiratory distress Auscultation: + crackles (LLL) Cardiovascular: RRR, no murmur, no edema Gastrointestinal (Abdomen): Inspection/Auscultation: abdomen normal to inspection; abdomen not distended Musculoskeletal: no cyanosis or clubbing, extremities motor strength 5/5 Skin: no rashes, warm and dry Neurologic: moves all extremities and awake Psychiatric: Orientation: alert, oriented to person and cooperative Results & Data Results & Data ([facility]) Vital Signs (Past 12 Hours) Vital Signs Temp Pulse Pulse Resp BP Pulse Ox 04/23/21 11:07 36.9 C 59 L 20 120/66 93 04/23/21 08:12 36.6 C 50 L 20 109/62 90 04/23/21 07:15 53 L PG Care Time/CCT Total # of Minutes Spent Total Time Spent with Patient: Total time spent is greater than 50% in coordination of care (as documented) at patient's floor/unit and/or counseling patient: Coding Level of Care Code 15051 Subseq Hosp Care Lvl 2 Diagnoses 2019 novel coronavirus-infected pneumonia (NCIP) U07.1; J12.82 Secondary bacterial pneumonia J15.9 Hypoxia R09.02 Trigeminal neuralgia G50.0
[2021-04-23] MEDS: HYDROcodone/HOMATROPINE SYRUP 5MG/1.5MG 5ML UDP PO PRN (21:00)
[2021-04-23] MEDS ORDERED: OXcarbazepine 150 MG TABLET PO SCH (21:00)
[2021-04-24] MEDS: cefTRIAXone SODIUM 1,000 MG in DEXTROSE 5% 50 ML IV SCH (00:08)
[2021-04-24] MEDS: AZITHROMYCIN 500 MG in DEXTROSE 5% 250 ML IV SCH (00:08)
[2021-04-24] MEDS: OXcarbazepine 150 MG TABLET PO SCH ×2 (06:02→16:41)
[2021-04-24] MEDS: CALCIUM CARBONATE 1250MG TAB PO SCH (07:58)
[2021-04-24] MEDS: ASCORBIC ACID 500 MG TAB PO SCH ×2 (07:58→21:58)
[2021-04-24] MEDS: CHOLECALCIFEROL 5,000 UNITS 125 MCG TAB PO SCH (07:58)
[2021-04-24] MEDS: ZINC SULFATE 220 MG CAPSULE PO SCH (07:58)
[2021-04-24] MEDS: ENOXAPARIN INJ 40 MG/0.4 ML SYR SQ SCH (07:59)
[2021-04-24] MEDS: guaiFENesin 600 MG TABCR PO SCH ×2 (07:59→21:57)
[2021-04-24] MEDS: dexAMETHasone 6 MG in SYRINGE 0 ML IV SCH ×2 (07:59→21:59)
[2021-04-24] MEDS: HYDROcodone/HOMATROPINE SYRUP 5MG/1.5MG 5ML UDP PO PRN (08:38)
[2021-04-24 11:09] LABS: BUN Creatinine Ratio 21.1 (10-20); Calcium 8.9 mg/dl (8.5-10.1); Est GFR (African American) 99.3 ml/min; Est GFR (Non-African American) 85.7 ml/min; Magnesium 2.1 mg/dl (1.7-2.4)
[2021-04-24 11:11] LABS: D Dimer 8170 ug/L FEU (0-500)
--- NOTE | 2021-04-24 15:36 | Hospitalist Progress Note ---
Date of Service April 24, 2021 Assessment & Plan (1) 2019 novel coronavirus-infected pneumonia (NCIP): Plan: First symptoms: 04/11/2021 First tested: 04/21/2021 Vaccinated: No Admission date: 04/21/2021 Admission O2 requirement: 2L NC Dexamethasone course started: 04/21/2021 - thus, day #4 today Remdesivir - not a candidate - was ~10 days into the illness at time of admission; likely no efficacy Not a candidate for Tocilizumab/baricitinib Antibiotics: Ceftriaxone/azithromycin - Started on 04/21/2021 - day #4 of such. I do not believe she has concomitant bacterial pneumonia. Would stop after 5 days of each. CTA chest today (obtained due to markedly elevated d-dimer) - extensive b/l COVID pneumonia with solitary PE RLL - start eliquis 10mg bid x 7 days, then 5mg BID thereafter. check dopplers - r/o DVT. (2) Secondary bacterial pneumonia: Plan: see above I do not suspect bacterial process (3) Hypoxia: Plan: Acute respiratory failure due to Covid-19. Resolving. (4) Trigeminal neuralgia: Plan: Continue oxcarbazepine per home dosing Plan: labs stable today vitals stable daughter extensively updated by phone today hopefully home next 1-2 days Admission and Anticipated Discharge Date Admission Date: April 21, 2021 Subjective pt c/o pleuritic chest pain over the L lower chest wall mainly hurts with coughing - stabbing in nature does not hurt with twisting/moving cough is largely dry eating well fatigue present still but no worse than previous she is very anxious Review of Systems Review of Systems: gen - no fevers CV - see HPI; no central cp, no right-sided p pulm - see HPI; no dyspnea at rest GI - no abd pain - no dysuria Physical Exam Physical Exam: gen - looks good, coughing, holds her L flank/back area when coughing mouth - MMM neck - no JVD heart - RRR, s1 s2, no murmur lungs - mild b/l basilar rales, worse on L; no increased work of breathing abd - soft NT ND BS+ ext - trace edema b/l, pulses 2+ b/l psych - a/o x 3; anxious Results & Data Results & Data ([facility]) Vital Signs (Past 12 Hours) Vital Signs Temp Pulse Resp BP Pulse Ox 04/24/21 07:22 36.8 C 60 19 110/64 93 Laboratory Results Laboratory Results - last 24 hr 04/24/21 04/24/21 10:32 10:32 D-Dimer 8170 H* Sodium 138 Potassium 4.0 Chloride 102 Carbon Dioxide 29 Anion Gap 7 BUN 15 Creatinine 0.71 Est Cr Clr Drug Dosing 75.0 Est GFR ( Amer) 99.3 Est GFR (Non-Af Amer) 85.7 BUN/Creatinine Ratio 21.1 H Glucose 119 H Calcium 8.9 Magnesium 2.1 AST 30 ALT 32 PG Care Time/CCT Total # of Minutes Spent Total Time Spent with Patient: Total time spent is greater than 50% in coordination of care (as documented) at patient's floor/unit and/or counseling patient: Coding Level of Care Code 20417 Subseq Hosp Care Lvl 3 Diagnoses 2019 novel coronavirus-infected pneumonia (NCIP) U07.1; J12.82 Secondary bacterial pneumonia J15.9 Hypoxia R09.02 Trigeminal neuralgia G50.0
[2021-04-24] MEDS ORDERED: OXcarbazepine 150 MG TABLET PO SCH (17:00)
[2021-04-24] MEDS ORDERED: OPTIRAY 320 125ml IV ONE (17:30)
--- NOTE | 2021-04-24 19:56 | CT Scan Report ---
CT ANGIOGRAM OF THE CHEST CLINICAL HISTORY: Atypical chest pain. Left-sided pleuritic pain. Elevated d-dimer. Covid. COMPARISON STUDY: Chest x-ray dated 04/21/2021. TECHNIQUE: Following the IV administration of 115 cc of Optiray 320, CT angiogram of the chest was pe rformed from the upper abdomen to the thoracic inlet utilizing the pulmonary embolus protocol. Images are reviewed in the axial, sagittal, and coronal planes. 3-D MIPS images are created and assessed. I V contrast was administered without complication. A dose lowering technique was utilized adhering to the principles of ALARA. CT DOSE: 303.37 mGy.cm FINDINGS: Thyroid: Imaged portions of the thyroid gland are normal in size and attenuation. Thoracic aorta: There is mild atherosclerotic calcification of the thoracic aorta comment with is nor mal in caliber and demonstrates standard 3-vessel arch anatomy. No dissection is seen. Pulmonary vasculature: The pulmonary trunk is normal in caliber. There is a tiny subsegmental pulmona ry embolus within a subsegmental branch of the right lower lobe seen on image #97. Additional filling defects are seen to suggest pulmonary embolus within the main, lobar, or segmental pulmonary branche s. Heart: The heart is normal in size and without pericardial effusion. Lungs and pleural spaces: Multifocal airspace consolidation is seen throughout both lungs with a subp leural and lower lobe predominance. The trachea and central airways are clear. No pleural effusion is identified. No pneumothorax is seen. Mediastinum: There is an indeterminant 1.7 cm nodule in the anterior mediastinum seen on image #125. No additional findings are identified to suggest the distal adenopathy. Jaimee: Mildly enlarged hilar nodes measure up to 11 mm in short axis. Axillae: There is no axillary lymphadenopathy. Upper abdomen: Partially visualized upper abdominal viscera is within normal limits. Skeletal structures: No lytic or blastic bony lesions are seen. IMPRESSION: 1. There is a tiny subsegmental pulmonary embolus within a branch of the right lower lobe pulmonary a rtery. 2. No additional pulmonary emboli are seen within the main, lobar, or segmental pulmonary arteries. 3. Multifocal airspace consolidation is seen throughout both lungs, consistent with the reported hist ory of a viral pneumonia. Radiographic follow-up to resolution is recommended. 4. Mildly enlarged hilar nodes are likely reactive. 5. There is an indeterminant 1.7 cm nodule in the anterior mediastinum. A 3-4 month follow-up chest C T is recommended for reassessment as this is atypical for lymphadenopathy. 6. Additional findings as above. ACT 112: Negative or not required by law. Electronically signed by: Bladimir Guido M.D. 04/24/2021 7:55 PM
--- NOTE | 2021-04-24 20:21 | Communication Note ---
Date of Service: April 24, 2021 CTA showing tiny distal R subsegmental PE. Reviewed chart; ritika has ordered Eliquis. I have ordered nonstat bilateral venous doppler of lower extremities. Bedrest with bedside commode ordered until this results
[2021-04-24] MEDS: APIXABAN 5 MG TABLET PO SCH (21:55)
[2021-04-25] MEDS: cefTRIAXone SODIUM 1,000 MG in DEXTROSE 5% 50 ML IV SCH (00:46)
[2021-04-25] MEDS: AZITHROMYCIN 500 MG in DEXTROSE 5% 250 ML IV SCH (00:46)
[2021-04-25] MEDS: OXcarbazepine 150 MG TABLET PO SCH ×2 (05:35→16:05)
--- NOTE | 2021-04-25 08:05 | Ultrasound Report ---
US venous doppler LE BI CLINICAL HISTORY: r/o dvt. COMPARISON: None available at the time of this dictation. TECHNIQUE: Bilateral lower extremity real-time compression venous ultrasound with Color Doppler imagi ng. Utilizing real-time ultrasonic imaging multiple real time high-resolution ultrasonic images with comp ression and noncompression maneuvers of the deep venous system in addition to color doppler imaging w ere performed from the common femoral vein through the proximal calf veins. FINDINGS: Currently there is normal compressibility of the deep venous system from the common femoral vein thro ugh the proximal calf veins. No current evidence of acute thrombosis is identified. Impression: No evidence of deep venous thrombus. ACT 112: Negative or not required by law. Electronically signed by: Kevin Torres M.D. 04/25/2021 8:04 AM
[2021-04-25] MEDS: CHOLECALCIFEROL 5,000 UNITS 125 MCG TAB PO SCH (08:27)
[2021-04-25] MEDS: guaiFENesin 600 MG TABCR PO SCH ×2 (08:27→21:37)
[2021-04-25] MEDS: APIXABAN 5 MG TABLET PO SCH ×2 (08:27→21:38)
[2021-04-25] MEDS: CALCIUM CARBONATE 1250MG TAB PO SCH (08:27)
[2021-04-25] MEDS: ZINC SULFATE 220 MG CAPSULE PO SCH (08:27)
[2021-04-25] MEDS: dexAMETHasone 6 MG in SYRINGE 0 ML IV SCH ×2 (08:27→21:39)
[2021-04-25] MEDS: ASCORBIC ACID 500 MG TAB PO SCH ×2 (08:28→21:39)
[2021-04-25 08:52] LABS: Appearance Urine Clear (Clear); Bilirubin Urine Negative (Negative); Blood Urine Negative (Negative); Color Urine Yellow; Glucose Urine UA Negative (Negative); Ketones Urine Negative (Negative); Leukocyte Esterase Urine Negative (Negative); Nitrite Urine Negative (Negative); Protein Urine Negative (Negative); Specific Gravity Urine 1.018 (1.000-1.030); Urobilinogen Urine Negative (Negative); pH Urine 7.5 (4.5-7.5)
[2021-04-25] MEDS: HYDROcodone/HOMATROPINE SYRUP 5MG/1.5MG 5ML UDP PO PRN ×2 (17:57→21:44)
--- NOTE | 2021-04-25 22:16 | Hospitalist Progress Note ---
Date of Service April 25, 2021 Assessment & Plan (1) 2019 novel coronavirus-infected pneumonia (NCIP): Plan: Slow improvement. First symptoms: 04/11/2021 First tested: 04/21/2021 Vaccinated: No Admission date: 04/21/2021 Admission O2 requirement: 2L NC Dexamethasone course started: 04/21/2021 - thus, day #5 today Remdesivir - not a candidate - was ~10 days into the illness at time of admission; likely no efficacy Not a candidate for Tocilizumab/baricitinib Antibiotics: Ceftriaxone/azithromycin - Started on 04/21/2021 - day #5 of such. I do not believe she has concomitant bacterial pneumonia. Stop both abx after today's doses. CTA chest - 1 solitary PE - eliquis 10mg BID. dopplers legs -- negative. plan for dose of lasix IV tomorrow AM to keep I/O balance negative. (2) Secondary bacterial pneumonia: Plan: see above #1 (3) Hypoxia: Plan: Acute respiratory failure due to Covid-19. Ongoing. Still requiring 4 L. I discussed proning/side positioning today. encouraged proning. cont pulm toilet. (4) Trigeminal neuralgia: Plan: Continue oxcarbazepine per home dosing (5) Pleuritic chest pain: Plan: Left 2nd to pleural irritation from extensive LLL COVID pneumonia no PE on that side u/a negative treat pain Admission and Anticipated Discharge Date Admission Date: April 21, 2021 Subjective patient c/o severe cough, dry pleuritic pain on L lower chest wall still present but no worse than previous is walking around the room - denies dyspnea with such eating well no fevers Review of Systems Review of Systems: gen - energy improving CV - no central cp or orthopnea pulm - no hemoptysis GI - no abd pain or n/v Physical Exam Physical Exam: gen - constant cough over the entire 10-15 min visit mouth - MMM neck - no JVD heart - RRR, s1 s2, no murmur lungs - mild-moderate b/l basilar rales, worse on L; no increased work of breathing abd - soft NT ND BS+ ext - trace edema b/l, pulses 2+ b/l psych - a/o x 3 Results & Data Results & Data ([facility]) Vital Signs (Past 12 Hours) Vital Signs Temp Pulse Resp BP Pulse Ox 04/25/21 15:00 36.7 C 65 16 126/81 90 04/25/21 12:30 95 Laboratory Results Laboratory Results - last 24 hr 04/25/21 08:32 Urine Color Yellow Urine Appearance Clear Urine pH 7.5 Ur Specific [place] 1.018 Urine Protein Negative Urine Glucose (UA) Negative Urine Ketones Negative Urine Blood Negative Urine Nitrite Negative Urine Bilirubin Negative Urine Urobilinogen Negative Ur Leukocyte Esterase Negative patient refused AM labs today PG Care Time/CCT Total # of Minutes Spent Total Time Spent with Patient: Total time spent is greater than 50% in coordination of care (as documented) at patient's floor/unit and/or counseling patient: Coding Level of Care Code 66780 Subseq Hosp Care Lvl 2 Diagnoses 2019 novel coronavirus-infected pneumonia (NCIP) U07.1; J12.82 Secondary bacterial pneumonia J15.9 Hypoxia R09.02 Trigeminal neuralgia G50.0 Pleuritic chest pain R07.81
[2021-04-26] MEDS: AZITHROMYCIN 500 MG in DEXTROSE 5% 250 ML IV SCH (00:17)
[2021-04-26] MEDS: cefTRIAXone SODIUM 1,000 MG in DEXTROSE 5% 50 ML IV SCH (00:17)
[2021-04-26] MEDS: OXcarbazepine 150 MG TABLET PO SCH ×2 (05:32→16:30)
[2021-04-26 06:42] LABS: Hematocrit (blood only) 40.2 % (37-47); Hemoglobin 13.1 g/dL (12.0-16.0); Immature Granulocytes # (auto) 0.05 K/uL (0.00-0.02); Immature Granulocytes % (auto) 0.7 %; Lymphocytes # (auto) 0.66 K/uL (1.2-3.4); Lymphocytes % (auto) 9.5 %; Mean Corpuscular Hemoglobin 29.8 pg (25-34); Mean Corpuscular Hgb Conc 32.6 g/dL (32-36); Mean Corpuscular Volume 91.6 fL (80-100); Mean Platelet Volume 10.1 fL (7.4-10.4); Monocytes # (auto) 0.34 K/uL (0.11-0.59); Monocytes % (auto) 4.9 %; Neutrophils # (auto) 5.93 K/uL (1.4-6.5); Neutrophils % (auto) 84.9 %; Platelet Count 316 K/uL (130-400); RDW Coefficient of Variation 12.6 % (11.5-14.5); RDW Standard Deviation 42.6 fL (36.4-46.3); Red Blood Count 4.39 M/uL (4.2-5.4); White Blood Count 6.98 K/uL (4.8-10.8)
[2021-04-26 07:18] LABS: BUN Creatinine Ratio 22.4 (10-20); C Reactive Protein 2.13 mg/dl (0-0.5); Calcium 8.6 mg/dl (8.5-10.1); Creatinine Clr Calc Pharmacy 91.8 ml/min; Est GFR (African American) 107.5 ml/min; Est GFR (Non-African American) 92.7 ml/min; Potassium 4.6 mmol/L (3.5-5.1)
[2021-04-26] MEDS ORDERED: FUROSEMIDE INJ 20 MG/2 ML VIAL IV ONE (07:55)
[2021-04-26] MEDS: HYDROcodone/HOMATROPINE SYRUP 5MG/1.5MG 5ML UDP PO PRN ×3 (09:15→20:17)
[2021-04-26] MEDS: dexAMETHasone 6 MG in SYRINGE 0 ML IV SCH ×2 (09:15→20:05)
[2021-04-26] MEDS: ASCORBIC ACID 500 MG TAB PO SCH ×2 (09:16→20:07)
[2021-04-26] MEDS: APIXABAN 5 MG TABLET PO SCH ×2 (09:17→20:08)
[2021-04-26] MEDS: guaiFENesin 600 MG TABCR PO SCH ×2 (09:17→20:05)
[2021-04-26] MEDS: CALCIUM CARBONATE 1250MG TAB PO SCH (09:18)
[2021-04-26] MEDS: CHOLECALCIFEROL 5,000 UNITS 125 MCG TAB PO SCH (09:18)
[2021-04-26] MEDS: ZINC SULFATE 220 MG CAPSULE PO SCH (09:18)
--- NOTE | 2021-04-26 21:02 | Hospitalist Progress Note ---
Date of Service April 26, 2021 Assessment & Plan (1) 2019 novel coronavirus-infected pneumonia (NCIP): Plan: IMPROVING very nicely. O2 is being weaned. I was able to wean her to 3L during my bedside rounds. First symptoms: 04/11/2021 First tested: 04/21/2021 Vaccinated: No Admission date: 04/21/2021 Admission O2 requirement: 2L NC Peak O2 requirement: 4L NC Dexamethasone course started: 04/21/2021 - thus, day #6 today Remdesivir - not a candidate - was ~10 days into the illness at time of admission; likely no efficacy Not a candidate for Tocilizumab/baricitinib Antibiotics: completed 5-day course each of ceftriaxone/azithromycin. CTA chest - 1 solitary PE - eliquis 10mg BID x 7 days, then 5mg BID thereafter. Plan 3 months of Rx. dopplers legs -- negative. lasix x 1 today to keep i/o balance negative. (2) Secondary bacterial pneumonia: Plan: see above #1 off of abx at this time (3) Hypoxia: Plan: Acute respiratory failure due to Covid-19. Ongoing but improved. Cont to prone. Cont to perform pulm toilet. Wean O2 as tolerated. (4) Trigeminal neuralgia: Plan: continue oxcarbazepine per home dosing stable controlled (5) Pleuritic chest pain: Plan: Left 2nd to pleural irritation from extensive LLL COVID pneumonia no PE on that side u/a negative pain resolved (6) Pulmonary embolism: Plan: solitary, one on right eliquis 10mg po bid x 7 days; then 5mg PO BID thereafter plan 3 months of Rx no DVT on LE dopplers b/l Plan: daughter updated by phone this evening Admission and Anticipated Discharge Date Admission Date: April 21, 2021 Subjective pt feeling much better the hycodan cough syrup is helping her cough she is proning and notices a large difference with her breathing due to such good appetite no dyspnea with exertion Review of Systems Review of Systems: gen - no fevers or chills cv - no chest pain, no pleuritic pain, no orthopnea gi - no abd pain; +constipation pulm - no sputum Physical Exam Physical Exam: gen - looks very good, minimal cough today mouth - MMM neck - no JVD heart - RRR, s1 s2, no murmur lungs - fine, moderate, b/l basilar rales, worse on L; no increased work of breathing abd - soft NT ND BS+ ext - no edema b/l, pulses 2+ b/l psych - a/o x 3 Results & Data Results & Data ([facility]) Vital Signs (Past 12 Hours) Vital Signs Temp Pulse Resp BP Pulse Ox 04/26/21 15:39 36.7 C 70 20 148/93 H 90 Laboratory Results bmp wnl crp 2.1 today PG Care Time/CCT Total # of Minutes Spent Total Time Spent with Patient: Total time spent is greater than 50% in coordination of care (as documented) at patient's floor/unit and/or counseling patient: Coding Level of Care Code 23818 Subseq Hosp Care Lvl 2 Diagnoses 2019 novel coronavirus-infected pneumonia (NCIP) U07.1; J12.82 Secondary bacterial pneumonia J15.9 Hypoxia R09.02 Trigeminal neuralgia G50.0 Pleuritic chest pain R07.81 Pulmonary embolism I26.99
[2021-04-27] MEDS: OXcarbazepine 150 MG TABLET PO SCH ×2 (05:40→16:31)
[2021-04-27] MEDS: dexAMETHasone 6 MG in SYRINGE 0 ML IV SCH ×2 (08:16→20:10)
[2021-04-27] MEDS: HYDROcodone/HOMATROPINE SYRUP 5MG/1.5MG 5ML UDP PO PRN ×3 (08:16→20:17)
[2021-04-27] MEDS: ZINC SULFATE 220 MG CAPSULE PO SCH (08:17)
[2021-04-27] MEDS: CHOLECALCIFEROL 5,000 UNITS 125 MCG TAB PO SCH (08:17)
[2021-04-27] MEDS: guaiFENesin 600 MG TABCR PO SCH ×2 (08:17→20:12)
[2021-04-27] MEDS: ASCORBIC ACID 500 MG TAB PO SCH ×2 (08:18→20:11)
[2021-04-27] MEDS: CALCIUM CARBONATE 1250MG TAB PO SCH (08:18)
[2021-04-27] MEDS: APIXABAN 5 MG TABLET PO SCH ×2 (08:18→20:11)
[2021-04-27] MEDS ORDERED: FUROSEMIDE 20 MG TAB PO STA (17:44)
[2021-04-27] MEDS ORDERED: bisacodyL 5 MG TABEC PO ONE (18:18)
[2021-04-27] MEDS: POLYETHYLENE (MIRALAX) 17 GM PACK PO SCH (18:25)
--- NOTE | 2021-04-27 23:42 | Hospitalist Progress Note ---
Date of Service April 27, 2021 Assessment & Plan (1) 2019 novel coronavirus-infected pneumonia (NCIP): Plan: IMPROVING very nicely. o2 weaned off at rest. 2-step - needs 4 L with activity (was borderline needing 5 L w/ activity). spoke to patient after 2-step - recommended 1 more night in hospital; hopefully she will improve further and will need less o2 for hector. First symptoms: 04/11/2021 First tested: 04/21/2021 Vaccinated: No Admission date: 04/21/2021 Admission O2 requirement: 2L NC Peak O2 requirement: 4L NC Dexamethasone course started: 04/21/2021 - thus, day #7 today Remdesivir - not a candidate - was ~10 days into the illness at time of admission; likely no efficacy Not a candidate for Tocilizumab/baricitinib Antibiotics: completed 5-day course each of ceftriaxone/azithromycin. CTA chest - 1 solitary PE - eliquis 10mg BID x 7 days, then 5mg BID thereafter. Plan 3 months of Rx. dopplers legs -- negative. lasix x 1 again today -- ok to give by mouth (2) Secondary bacterial pneumonia: Plan: see above #1 off of abx at this time (3) Hypoxia: Plan: Acute respiratory failure due to Covid-19. improved as in #1 above Cont to prone. Cont to perform pulm toilet. (4) Trigeminal neuralgia: Plan: continue oxcarbazepine per home dosing stable controlled (5) Pleuritic chest pain: Plan: Left 2nd to pleural irritation from extensive LLL COVID pneumonia no PE on that side u/a negative pain resolved (6) Pulmonary embolism: Plan: solitary, one on right eliquis 10mg po bid x 7 days; then 5mg PO BID thereafter plan 3 months of Rx no DVT on LE dopplers b/l Plan: daughter updated by phone this evening told her hopefully her mom can d/c home tomorrow labs in am Admission and Anticipated Discharge Date Admission Date: April 21, 2021 Subjective cough much improved with hycodan proning and this helps considerably with all pulmonary symptoms eating robustly still no BM wants to go home Review of Systems Review of Systems: gen - no fevers or chills cv - no orthopnea GI - no pain despite constipation pulm - no sputum Physical Exam Physical Exam: gen - looks very good mouth - MMM neck - no JVD heart - RRR, s1 s2, no murmur lungs - fine, moderate, b/l basilar rales, worse on L - rales are improved today; no wheezes; no increased work of breathing abd - soft NT ND BS+ ext - no edema b/l, pulses 2+ b/l psych - a/o x 3 Results & Data Results & Data ([facility]) Vital Signs (Past 12 Hours) Vital Signs Temp Pulse Pulse Pulse Pulse Pulse Pulse 04/27/21 22:50 36.6 C 50 L 04/27/21 16:01 79 74 73 81 76 04/27/21 15:33 37.0 C 68 Pulse Resp Resp Resp Resp Resp Resp 04/27/21 22:50 18 04/27/21 16:01 76 19 19 19 20 18 04/27/21 15:33 16 Resp BP Pulse Ox Pulse Ox Pulse Ox Pulse Ox Pulse Ox 04/27/21 22:50 95 04/27/21 16:01 17 87 L 88 L 91 85 L 04/27/21 15:33 120/76 92 Pulse Ox Pulse Ox 04/27/21 22:50 04/27/21 16:01 89 L 90 04/27/21 15:33 Diagnostic Findings 2step o2 test -- no o2 at rest; 4 L w/ activity PG Care Time/CCT Total # of Minutes Spent Total Time Spent with Patient: Total time spent is greater than 50% in coordination of care (as documented) at patient's floor/unit and/or counseling patient: Coding Level of Care Code 16830 Subseq Hosp Care Lvl 2 Diagnoses 2019 novel coronavirus-infected pneumonia (NCIP) U07.1; J12.82 Secondary bacterial pneumonia J15.9 Hypoxia R09.02 Trigeminal neuralgia G50.0 Pleuritic chest pain R07.81 Pulmonary embolism I26.99
[2021-04-28] MEDS: HYDROcodone/HOMATROPINE SYRUP 5MG/1.5MG 5ML UDP PO PRN ×2 (04:42→13:35)
[2021-04-28] MEDS: OXcarbazepine 150 MG TABLET PO SCH ×2 (06:15→15:46)
[2021-04-28 07:56] VITALS: TEMP 98.4
[2021-04-28] MEDS: ZINC SULFATE 220 MG CAPSULE PO SCH (08:10)
[2021-04-28] MEDS: dexAMETHasone 6 MG in SYRINGE 0 ML IV SCH (08:10)
[2021-04-28] MEDS: CALCIUM CARBONATE 1250MG TAB PO SCH (08:10)
[2021-04-28] MEDS: POLYETHYLENE (MIRALAX) 17 GM PACK PO SCH (08:10)
[2021-04-28] MEDS: ASCORBIC ACID 500 MG TAB PO SCH (08:11)
[2021-04-28] MEDS: CHOLECALCIFEROL 5,000 UNITS 125 MCG TAB PO SCH (08:11)
[2021-04-28] MEDS: APIXABAN 5 MG TABLET PO SCH (08:11)
[2021-04-28] MEDS: guaiFENesin 600 MG TABCR PO SCH (08:39)
[2021-04-28 10:53] LABS: Hematocrit (blood only) 38.9 % (37-47); Hemoglobin 12.9 g/dL (12.0-16.0); Mean Corpuscular Hemoglobin 29.7 pg (25-34); Mean Corpuscular Hgb Conc 33.2 g/dL (32-36); Mean Corpuscular Volume 89.6 fL (80-100); Mean Platelet Volume 9.8 fL (7.4-10.4); Platelet Count 427 K/uL (130-400); RDW Coefficient of Variation 12.4 % (11.5-14.5); Red Blood Count 4.34 M/uL (4.2-5.4); White Blood Count 14.79 K/uL (4.8-10.8)
[2021-04-28 11:25] LABS: BUN Creatinine Ratio 27.3 (10-20); Calcium 8.6 mg/dl (8.5-10.1); Creatinine Clr Calc Pharmacy 96.8 ml/min; Est GFR (African American) 109.4 ml/min; Est GFR (Non-African American) 94.4 ml/min; Potassium 3.8 mmol/L (3.5-5.1)
[2021-04-28] MEDS ORDERED: POTASSIUM CHLORIDE CRTAB 20 MEQ TABCR PO STA (11:27)
[2021-04-28] MEDS ORDERED: FUROSEMIDE 20 MG TAB PO ONE (11:45)
--- NOTE | 2021-04-28 16:03 | Discharge Summary ---
Date of Service date of admission - April 21, 2021 date of discharge - April 28, 2021 Admission HPI Per Admitting Provider The patient is a 70-year-old female with a past medical history including metacarpal bone fracture, chronic venous insufficiency, mitral valve prolapse syndrome, antique indicating artery aneurysm, dyslipidemia, osteoporosis, trigeminal neuralgia, vitamin D deficiency, constipation, heart disease and asthma. Patient presents with symptoms that started on the april. She admits to cough and congestion. She denies any recorded fevers. She has felt diffusely achy. She does admit to mild shortness of breath. She has pain with coughing over the left lower chest on her side. No abdominal pain, nausea, vomiting, or diarrhea. No dysuria, urgency, or frequency. COVID-19 testing was positive upon admission. Principal Diagnosis 1. acute hypoxic respiratory failure 2nd to COVID-19 pneumonia 2. small, right-sided pulmonary embolus Discharge Exam gen - NAD, looks well mouth - MMM neck - no JVD heart - RRR, s1 s2, no murmur lungs - fine, mild, b/l basilar rales, worse on L - rales improved from prior exams; no wheezes; no increased work of breathing abd - soft NT ND BS+ ext - no edema b/l, pulses 2+ b/l psych - a/o x 3 Discharge Data Allergies Allergy/AdvReac Type Severity Reaction Status Date / Time No Known Drug Allergies Allergy Unknown Verified 04/21/21 21:44 Procedures Performed 2-step ambulatory O2 test - no need for home oxygen Ordered Studies Chest X-Ray 04/21/21 21:13 XR chest 1V portable CLINICAL HISTORY: Chest Pain. Cough for 10 days. Nonsmoker. COMPARISON STUDY: 02/22/2021 TECHNIQUE: 1 view of the chest FINDINGS: Single frontal view of the chest demonstrates the cardiomediastinal silhouette to be within normal limits. Patchy interstitial and alveolar opacities are present bilaterally. The findings are most characteristic of a viral type pneumonitis. Covid 19 pneumonia should be excluded. There is no evidence for pleural effusion. There is no evidence for vascular congestion. There is no acute osseous pathology. IMPRESSION: Patchy interstitial and alveolar opacities bilaterally characteristic of a viral type pneumonitis and probable early Covid 19 pneumonia. ACT 112: Negative or not required by law. Electronically signed by: Min Wade M.D. 04/21/2021 9:42 PM Chest CTA 04/24/21 15:54 CT ANGIOGRAM OF THE CHEST CLINICAL HISTORY: Atypical chest pain. Left-sided pleuritic pain. Elevated d- dimer. Covid. COMPARISON STUDY: Chest x-ray dated 04/21/2021. TECHNIQUE: Following the IV administration of 115 cc of Optiray 320, CT angiogram of the chest was performed from the upper abdomen to the thoracic inlet utilizing the pulmonary embolus protocol. Images are reviewed in the axial, sagittal, and coronal planes. 3-D MIPS images are created and assessed. IV contrast was administered without complication. A dose lowering technique was utilized adhering to the principles of ALARA. CT DOSE: 303.37 mGy.cm FINDINGS: Thyroid: Imaged portions of the thyroid gland are normal in size and attenuation. Thoracic aorta: There is mild atherosclerotic calcification of the thoracic aorta comment with is normal in caliber and demonstrates standard 3-vessel arch anatomy. No dissection is seen. Pulmonary vasculature: The pulmonary trunk is normal in caliber. There is a tiny subsegmental pulmonary embolus within a subsegmental branch of the right lower lobe seen on image #97. Additional filling defects are seen to suggest pulmonary embolus within the main, lobar, or segmental pulmonary branches. Heart: The heart is normal in size and without pericardial effusion. Lungs and pleural spaces: Multifocal airspace consolidation is seen throughout both lungs with a subpleural and lower lobe predominance. The trachea and central airways are clear. No pleural effusion is identified. No pneumothorax is seen. Mediastinum: There is an indeterminant 1.7 cm nodule in the anterior mediastinum seen on image #125. No additional findings are identified to suggest the distal adenopathy. Jaimee: Mildly enlarged hilar nodes measure up to 11 mm in short axis. Axillae: There is no axillary lymphadenopathy. Upper abdomen: Partially visualized upper abdominal viscera is within normal limits. Skeletal structures: No lytic or blastic bony lesions are seen. IMPRESSION: 1. There is a tiny subsegmental pulmonary embolus within a branch of the right lower lobe pulmonary artery. 2. No additional pulmonary emboli are seen within the main, lobar, or segmental pulmonary arteries. 3. Multifocal airspace consolidation is seen throughout both lungs, consistent with the reported history of a viral pneumonia. Radiographic follow-up to resolution is recommended. 4. Mildly enlarged hilar nodes are likely reactive. 5. There is an indeterminant 1.7 cm nodule in the anterior mediastinum. A 3-4 month follow-up chest CT is recommended for reassessment as this is atypical for lymphadenopathy. 6. Additional findings as above. ACT 112: Negative or not required by law. Electronically signed by: Bladimir Guido M.D. 04/24/2021 7:55 PM Venous Doppler Study 04/24/21 20:18 US venous doppler LE BI CLINICAL HISTORY: r/o dvt. COMPARISON: None available at the time of this dictation. TECHNIQUE: Bilateral lower extremity real-time compression venous ultrasound with Color Doppler imaging. Utilizing real-time ultrasonic imaging multiple real time high-resolution ul trasonic images with compression and noncompression maneuvers of the deep venous system in addition to color doppler imaging were performed from the common femoral vein through the proximal calf veins. FINDINGS: Currently there is normal compressibility of the deep venous system from the common femoral vein through the proximal calf veins. No current evidence of acute thrombosis is identified. Impression: No evidence of deep venous thrombus. ACT 112: Negative or not required by law. Electronically signed by: Kevin Torres M.D. 04/25/2021 8:04 AM Hospital Course (1) 2019 novel coronavirus-infected pneumonia (NCIP): First symptoms: 04/11/2021 First tested: 04/21/2021 Vaccinated: No Admission date: 04/21/2021 Admission O2 requirement: 2L NC Peak O2 requirement: 4L NC Dexamethasone course started: 04/21/2021 - thus, received 8 days of dexamethasone 6mg daily while here. Remdesivir - was ~10 days into the illness at time of admission; likely no efficacy and thus deferred. Was not a candidate for Tocilizumab/baricitinib therapy. Antibiotics: did complete a 5-day course each of ceftriaxone/azithromycin for suspected bacterial superinfection. CTA chest - 1 solitary PE on right - eliquis 10mg BID x 7 days, then 5mg BID thereafter. Plan 3 months of Rx. Venous dopplers legs -- negative for DVT. Received lasix while here to maintain net negative I/O balance. With the above measures her O2 was weaned off by discharge. She passed her 2-step ambulatory O2 test thus she will not need supplemental O2 at home. She will complete 2 more doses of dexamethasone 6mg daily at home. (2) Acute respiratory failure with hypoxia: 2nd COVID-19 pneumonia and 1 solitary PE. Hypoxia resolved, oxygen weaned off by discharge. (3) Pulmonary embolism: Solitary PE - right lung. Initiated on Eliquis 10mg po bid x 7 days; then 5mg PO BID thereafter. Recommend 3 months of Rx. No DVT on LE dopplers of both legs. (4) Secondary bacterial pneumonia: Suspected. See above in #1. (5) Trigeminal neuralgia: continue oxcarbazepine per home dosing. stable and controlled while here. (6) Pleuritic chest pain: Left 2nd to pleural irritation from extensive LLL COVID pneumonia no PE on that side u/a was negative pain was resolved prior to discharge Total Time Total Time Spent Total Time Spent (In Minutes): 40 Discharge Plan Discharge Items Patient Disposition: Home - Self-Care Reason For Visit: COVID-19 PNEUMONIA Discharge Diagnosis: 1. COVID-19 pneumonia - resolving 2. Pulmonary embolus - blood clot in the right lung Activity: As commented below Activity Comment: gradually increase your activities over the next 1-2 weeks Sexual Activity: Wait until after follow-up appointment Exercise/Sports: Wait until after follow-up appointment Driving/Machine Use: Resume 3 days after discharge Non-emergency contact: Primary Care Provider and [employer] Supervisor Call non-emergency contact if: you have any medication questions, your symptoms worsen and you have a fever Follow-up/Referrals: [facility] Group] (4-6 weeks; get established; hospitalized for COVID pneumonia) Apolinar Juárez MD [Primary Care Provider] - (see Dr Juárez within 1 week) Diet: Regular Addtl Attending Provider Instructions: Mrs Villeda, You were hospitalized for COVID-19 pneumonia. You were treated with a combination of dexamethasone steroid, oxygen, antibiotics, diuretic water pills, and other supportive care. Your oxygen was weaned off by the time you were discharged. An ambulatory oxygen test on 04/28/21 showed that you do NOT need oxygen at home during your recovery. During your stay you had complained of pain over your left lower back. This pain was "pleurisy" due to your COVID pneumonia. We did perform a CT scan of your lungs which showed not only extensive COVID pneumonia but a small blood clot in the right lung. We checked your legs for DVT blood clots and those studies were negative. Eliquis blood thinner was started for prevention of additional blood clots. Recommendations - 1. COVID-19 pneumonia - * take dexamethasone steroid - 6mg once daily with food x 2 days. Start this tomorrow on 04/29/2021. * ok to take dliu-bxi-agoysin mucinex up to 1200mg twice daily as needed/as desired for cough * continue your breathing exercises with your incentive spirometry device; continue for at least another week * continue to prone ("tummy time") as much as possible over the next week * if you need additional cough suppression you can take tessalon pearles, 200mg every 8 hours as needed for cough * finally, if all of the above is not controlling your cough, you can take the hydrocodone cough syrup; this has narcotic pain medication in it - thus, do NOT drive while taking this cough syrup and do NOT drink alcohol while using it * the hydrocodone cough syrup can make you constipated * it can also cause drowsiness 2. For treatment of your pulmonary embolus blood clot in the right lung - * take Eliquis as follows - start this medication TONIGHT upon return home - * 10mg twice daily x 3 days, then - * 5mg twice daily thereafter * I would recommend 3 months of treatment with the Eliquis * see additional information below regarding blood thinners 3. You are unlikely to be contagious to others at this time. You do not need to isolate at home. However, with that said, plan to spend the next few days at home resting and recovering. 4. To help prevent stomach irritation while on the steroids and Eliquis take - * take omeprazole 40mg once daily in the morning * you can start this tomorrow on 04/29/21 5. Continue to wear a mask any time you leave your home. 6. Check your oxygen levels on your finger with a pulse oximeter 3-4 times each day. If you are consistently 90% or higher these are acceptable readings. If you are less than 90% consistently please seek medical attention. 7. Obtain a flu shot in about 3-4 weeks if you haven't had one. 8. It is important to listen to your body during the recovery period. If you are tired it is ok to rest/nap. You are going to feel more tired than usual and you won't be back to 100% for a week or two, if not longer. Try not to "over do it - gradually increase your activities. 9. constipation - * consider a dulcolax suppository when you get home, if needed, since it has been a few days since your last bowel movement * continue on miralax once daily for maintenance * consider adding 2 tablets of senakot daily to the miralax to stay regular, if needed 10. Strongly consider getting the COVID vaccine in about 3 months. Follow-up - see separate section Return to [facility] if - * you have fevers over 100 degrees * you have worsening shortness of breath * your pulse oximetry readings are less than 90% consistently * you have bleeding from any location as listed below * you have chest pains * any other concerns It was our pleasure caring for you at [facility]! Continue to feel better, Dr Erika Chavez Certified [employer]ation Officer Provider Instructions: Blood Thinner (Anticoagulation) Medication Instructions: For reasons not entirely understood having COVID-19 infection, in some individuals, increases the chances of developing DVT blood clots of the legs and blood clots of the lungs. We did discover that you had a very small blood clot in the right lung. Your doppler ultrasounds of the legs did NOT show clots. We have started you on a blood thinner called "ELIQUIS." * You should take your medication exactly as directed. * Never skip a dose. * Never take a double dose. If you miss a dose, take it as soon as you remember. Call your Primary Care doctor if you experience any of the following: * Swelling or Pain in your leg * Sudden, continuous pain deep in a muscle * Pain that worsens when you are active or when you stand still for a long time * Chest Pain * Sudden Shortness of Breath * Rapid or pounding heart beat * Fainting * Dizziness * Cough with blood or bloody sputum * Sweating more than normal * Bruises * Heavy or uncontrolled bleeding * Blood in your urine, stool or vomit * Black or tarry stools * Heavy nose bleeding Caring for Your Self at Home: * Avoid sitting, standing or lying down for long periods without moving your legs and feet * When traveling by car, stop to get out and move around at least once every 3 hours * On long airplane, train or bus rides, get up and move around when possible * If you can't get up, wiggle your toes and tighten your calves to keep your blood moving Pending Studies at Discharge: No Stand-Alone Forms: My [facility], Smoking Cessation Medications and DC Order Prescriptions: New benzonatate 100 mg Capsule 200 mg PO Q8H PRN (Reason: cough) Qty: 30 RF: 0 hydrocodone-homatropine [Hydromet] 5-1.5 mg/5 mL Syrup 5 ml PO Q6H PRN (Reason: cough) Qty: 100 RF: 0 Eliquis 5 mg Tablet 5 mg PO DIRECTED Qty: 60 RF: 2 omeprazole 40 mg capsule,delayed release(DR/EC) 40 mg PO QAM Qty: 30 RF: 2 Continued oxcarbazepine 300 mg tablet 300 mg PO BID RF: 0 zinc 50 mg tablet 50 mg PO DAILY RF: 0 calcium carbonate 600 mg calcium (1,500 mg) tablet 600 mg PO DAILY Qty: 90 RF: 0 cholecalciferol (vitamin D3) 2,000 unit capsule 2,000 units PO DAILY RF: 0 ascorbic acid (vitamin C) 500 mg Tablet 500 mg PO BID RF: 0 Discharge Orders: Discharge Order (Routine); Ordered 04/28/21 Ordered By: You Hurst/Other Patient Handouts: How COVID-19 Spreads, 2019-nCoV, COVID-19 Home Care, Proning COVID-19, COVID-19 and the Flu What's ... Admission Data Admit Date/Time: 04/21/21 23:27 Attending Provider: You James Admit Provider: Izaiah Saldaña Primary Care Provider: Apolinar Juárez Other Providers: Andrei Edwards ; Izaiah Saldaña Other Interventions: Discharge Summary Assessment (RN) Last Done: 04/28/21 16:46 Coding Level of Care Code D/C DAY MANAGEMENT >30 MINS Diagnoses 2019 novel coronavirus-infected pneumonia (NCIP) U07.1; J12.82 Secondary bacterial pneumonia J15.9 Trigeminal neuralgia G50.0 Pleuritic chest pain R07.81 Pulmonary embolism I26.99 Acute respiratory failure with hypoxia J96.01
[2021-04-28 16:41] VITALS: BP 106/60; PULSE 53; O2SAT 93
== END 2021-04-28 18:16 | disposition home or self-care (01) | DRG 177 ==
LOC: ED 20:54 → SUATTDRO 23:27 → 2W 23:27